=== PATIENT | female | born 1975 | race Caucasian/White ===

== ENCOUNTER 2021-07-10 19:09 | Emergency (ER) | payer OTHER ==
[~2021-07-10] VITALS: Ht 165.1 cm; Wt 59.0 kg
[2021-07-10 19:48] LABS: BASOPHILS ABSOLUTE AUTO 0.03 K/mm3 (0.00-0.23); BASOPHILS PERCENT AUTO 1 % (0-2); EOSINOPHILS ABSOLUTE AUTO 0.15 K/mm3 (0.00-0.68); EOSINOPHILS PERCENT AUTO 3 % (0-6); Hematocrit 32.8 % (33.0-51.0); Hemoglobin 11.9 g/dL (11.5-16.0); IMMATURE GRAN ABSOLUTE AUTO 0.01 K/mm3 (0.00-0.10); IMMATURE GRAN PERCENT AUTO 0 % (0-1); LYMPHOCYTES ABSOLUTE AUTO 1.03 K/mm3 (0.84-5.20); LYMPHOCYTES PERCENT AUTO 22 % (21-46); MONOCYTES ABSOLUTE AUTO 0.61 K/mm3 (0.16-1.47); MONOCYTES PERCENT AUTO 13 % (4-13); Mean Corpuscular HGB 37.1 pg (26.0-34.0); Mean Corpuscular HGB Conc 36.3 g/dL (31.5-36.5); Mean Corpuscular Volume 102 fL (80-100); Mean Platelet Volume 12.5 fL (9.1-12.4); NEUTROPHILS ABSOLUTE AUTO 2.79 K/mm3 (1.96-9.15); NEUTROPHILS PERCENT AUTO 61 % (41-73); Platelet Count 74 K/mm3 (150-400); RDW Coefficient Variation 11.5 % (11.7-14.2); RDW Standard Deviation 43.4 fL (35.1-46.3); Red Blood Cell Count 3.21 M/mm3 (3.80-5.20); White Blood Cell Count 4.62 K/mm3 (4.00-11.30)
[2021-07-10 20:08] LABS: Albumin, Blood 3.2 g/dL (3.4-5.0); Albumin/Globulin Ratio 1.1 (0.8-1.8); Bilirubin, Total 0.8 mg/dL (0.1-1.0); Bun/Creatinine Ratio 49.7 (12.0-20.0); Creatinine, Blood 0.3 mg/dL (0.40-1.00); Globulin, Blood 2.9 g/dL (2.2-4.0); Potassium, Blood 3.4 mmol/L (3.5-5.5); Total Protein, Blood 6.1 g/dL (6.4-8.2)
[2021-07-10 20:15] LABS: Source, Urine Clean Catch
[2021-07-10 20:19] LABS: Appearance, Urine Cloudy (Clear); Blood, Urine 5+ (Neg); Color, Urine Amber (P-Yellow); Glucose Qualitative, Urine 4+ (Neg); Ketones, Urine 2+ (Neg); Leukocyte Esterase, Urine 3+ (Neg); Nitrite, Urine Neg (Neg); Protein, Urine 2+ (Neg); Specific Gravity, Urine 1.015 (1.003-1.022); Urobilinogen, Urine 2+ (Normal); pH, Urine 6.5 (5.0-8.0)
[2021-07-10 20:21] LABS: Influenza A, PCR NEGATIVE (NEGATIVE); Influenza B, PCR NEGATIVE (NEGATIVE); Resp Syncytial Virus, PCR NEGATIVE (NEGATIVE); SARS-Cov-2 (COVID-19) PCR, MMC NEGATIVE (NEGATIVE)
[2021-07-10 20:25] LABS: Bilirubin, Urine 1+ (Neg); Red Blood Cells, Urine TNTC /hpf (0-2); White Blood Cells, Urine TNTC /hpf (0-5)
[2021-07-10 20:26] LABS: Bacteria Many /hpf; Squamous Epithelial Cells Mod /hpf (Few)
[2021-07-10 20:27] LABS: Renal Epithelial Few /hpf (0-Rare)
[2021-07-10 20:28] LABS: Calcium Oxalate Crystals Rare /hpf; Hyaline Casts 0-2 /lpf (0-2); WBC Cast 0-2 /lpf (0)
[2021-07-10] MEDS ORDERED: CEPH500 PO (21:52)
[2021-07-11] MEDS ORDERED: GABA300 PO (12:22)
[2021-07-11] MEDS ORDERED: FOLI1 PO (12:22)
[2021-07-11] MEDS ORDERED: B-1100 MG PO (12:22)
[2021-07-11] MEDS ORDERED: MELATONIN5 M1 PO (12:23)
[2021-07-11] MEDS ORDERED: Children's Che1 EAC1 PO (12:23)
[2021-07-11] MEDS ORDERED: LANTUS SOL100 UNIT/1 SQ (12:24)
[2021-07-11] MEDS ORDERED: CHLO25 PO (12:24)
[2021-07-11] MEDS ORDERED: IBUP800 PO (12:25)
[2021-07-11] MEDS ORDERED: HYDPAM50 PO (12:25)
[2021-07-11] MEDS ORDERED: METO25ER PO (12:26)
[2021-07-11] MEDS ORDERED: CATAPRES0.1 MG PO (12:26)
[2021-07-11] MEDS ORDERED: NICOTINE LOZENGE2 MG MM (12:27)
[2021-07-11] MEDS ORDERED: PROM25 PO (12:27)
[2021-07-11] MEDS ORDERED: TRAZ50 PO (12:27)
[2021-07-11] MEDS ORDERED: NICODERM CQ1 EA10 TOP (12:27)
[2021-07-11] MEDS ORDERED: Naltrexone HCl50 MG PO (12:28)
== END 2021-07-10 23:19 | disposition home or self-care (01) ==
LOC: ER 19:09
PROVIDERS: Emergency Medicine
DX: N39.0 Urinary tract infection, site not specified (principal); R53.81 Other malaise; F10.21 Alcohol dependence, in remission; Z20.822 Contact with and (suspected) exposure to COVID-19
CPT/HCPCS: 0241U; 80053; 81001; 81025; 85025; 87086; 87147; 96374; 99285-25; J0696

== ENCOUNTER 2021-07-11 07:40 | Inpatient (IN) | payer OTHER ==
[~2021-07-11] VITALS: Ht 152.4 cm; Wt 37.2 kg
[~2021-07-11 07:40] MED LIST: CEPH500 PO
[2021-07-11 08:44] LABS: BASOPHILS ABSOLUTE AUTO 0.03 K/mm3 (0.00-0.23); BASOPHILS PERCENT AUTO 1 % (0-2); EOSINOPHILS ABSOLUTE AUTO 0.15 K/mm3 (0.00-0.68); EOSINOPHILS PERCENT AUTO 3 % (0-6); Hematocrit 31.7 % (33.0-51.0); Hemoglobin 11.4 g/dL (11.5-16.0); IMMATURE GRAN ABSOLUTE AUTO 0.02 K/mm3 (0.00-0.10); IMMATURE GRAN PERCENT AUTO 0 % (0-1); LYMPHOCYTES ABSOLUTE AUTO 0.71 K/mm3 (0.84-5.20); LYMPHOCYTES PERCENT AUTO 12 % (21-46); MONOCYTES ABSOLUTE AUTO 0.85 K/mm3 (0.16-1.47); MONOCYTES PERCENT AUTO 14 % (4-13); Mean Corpuscular HGB 37.1 pg (26.0-34.0); Mean Corpuscular Volume 103 fL (80-100); Mean Platelet Volume 11.1 fL (9.1-12.4); NEUTROPHILS ABSOLUTE AUTO 4.32 K/mm3 (1.96-9.15); NEUTROPHILS PERCENT AUTO 71 % (41-73); Platelet Count 77 K/mm3 (150-400); RDW Coefficient Variation 11.8 % (11.7-14.2); Red Blood Cell Count 3.07 M/mm3 (3.80-5.20); White Blood Cell Count 6.08 K/mm3 (4.00-11.30)
[2021-07-11 09:25] LABS: Thyroid Stimulating Hormone 3.57 uIU/mL (0.360-4.800)
[2021-07-11 09:27] LABS: Albumin, Blood 3.1 g/dL (3.4-5.0); Albumin/Globulin Ratio 0.9 (0.8-1.8); Bilirubin, Total 0.9 mg/dL (0.1-1.0); Bun/Creatinine Ratio 60.9 (12.0-20.0); Calcium, Blood 8.8 mg/dL (8.5-10.1); Creatinine, Blood 0.28 mg/dL (0.40-1.00); Globulin, Blood 3.3 g/dL (2.2-4.0); Potassium, Blood 3.4 mmol/L (3.5-5.5); Total Protein, Blood 6.4 g/dL (6.4-8.2)
[2021-07-11] MEDS ORDERED: GABA300 PO (12:22)
[2021-07-11] MEDS ORDERED: FOLI1 PO (12:22)
[2021-07-11] MEDS ORDERED: B-1100 MG PO (12:22)
[2021-07-11] MEDS ORDERED: Children's Che1 EAC1 PO (12:23)
[2021-07-11] MEDS ORDERED: MELATONIN5 M1 PO (12:23)
[2021-07-11] MEDS ORDERED: LANTUS SOL100 UNIT/1 SQ (12:24)
[2021-07-11] MEDS ORDERED: CHLO25 PO (12:24)
[2021-07-11] MEDS ORDERED: HYDPAM50 PO (12:25)
[2021-07-11] MEDS ORDERED: IBUP800 PO (12:25)
[2021-07-11] MEDS ORDERED: CATAPRES0.1 MG PO (12:26)
[2021-07-11] MEDS ORDERED: METO25ER PO (12:26)
[2021-07-11] MEDS ORDERED: NICOTINE LOZENGE2 MG MM (12:27)
[2021-07-11] MEDS ORDERED: NICODERM CQ1 EA10 TOP (12:27)
[2021-07-11] MEDS ORDERED: PROM25 PO (12:27)
[2021-07-11] MEDS ORDERED: TRAZ50 PO (12:27)
[2021-07-11] MEDS ORDERED: Naltrexone HCl50 MG PO (12:28)
--- NOTE | 2021-07-11 19:17 | NUR ---
PATIENT CAME TO THE SCU APROX 6:50pm FROM THE ER. ADMITTING DX METABOLIC ENCEPHALOPATHY. SHE HAD 4 BAGS OF k IV IN THE ER, AND ONE BAG OF THIAMINE. SHE IS A CLIENT OF [facility] AND LIVES AT [facility]. SHE HAS BEEN SOBER 4 DAYS. CIWA SCORES SHOULD BE TAKEN. NONE HAVE BEEN DONE IN THE ER. PATIENT IS DIABETIC. SHE HAS BEEN NPO ALL DAY- SINCE COMING INTO ER EARLY THIS MORNING. PATIENT IS THIRSTY. HRR, LS CLEAR BUT DIMINISHED. SHE IS VERY WEAK AND WEIGHS 82 POUNDS, NEEDING 2 PEOPLE TO ASSIST TO COMMODE/BR AT THIS TIME. PATIENT HAS 2 IVS: 22 G L AC, 20G R W. THE WRIST IV IS PAINFUL TO USE. REVIEW LABS- SOME ARE ABNORMAL . CT OF HEAD SHOWS SOME MICROVASCULAR ISCHEMIA, MORE THAN NORMAL FOR AGE OF 46. PATIENTS QUICK ADMIT WAS COMPLETED. MY REP0RT GIVEN TO NOC NURSE. PATIENT IS RESTING IN BED NOW, AFTER HAVING JUST USED THE BEDSIDE COMMODE.
[2021-07-12 05:31] LABS: Hematocrit 35.4 % (33.0-51.0); Hemoglobin 12.3 g/dL (11.5-16.0); Mean Corpuscular HGB 36.5 pg (26.0-34.0); Mean Corpuscular HGB Conc 34.7 g/dL (31.5-36.5); Mean Corpuscular Volume 105 fL (80-100); Mean Platelet Volume 11.5 fL (9.1-12.4); Platelet Count 80 K/mm3 (150-400); RDW Coefficient Variation 11.6 % (11.7-14.2); RDW Standard Deviation 44.5 fL (35.1-46.3); Red Blood Cell Count 3.37 M/mm3 (3.80-5.20); White Blood Cell Count 6.26 K/mm3 (4.00-11.30)
[2021-07-12 05:50] LABS: Bun/Creatinine Ratio 49.3 (12.0-20.0); Calcium, Blood 9.2 mg/dL (8.5-10.1); Creatinine, Blood 0.2 mg/dL (0.40-1.00)
--- NOTE | 2021-07-12 06:34 | NUR ---
DUPLEX TRIMMER SUMMARY ADMITTED FOR ACUTE METABOLIC ENCEPHALOPATHY. PT IS A FULL CODE. CIWA HAS BEEN ELEVATED THROUGHOUT THE SHIFT. PT APPEARS TO BE INCREASINGLY CONFUSED THIS MORNING. SHE BELIEVES THAT SHE IS STILL AT [facility] AND THAT THE OTHER PATIENTS CRYING ARE HER DAUGHTER AND SHE NEEDS TO SEE THEM. PT PLACED IN GABRIEL DUE TO RISK OF FALLS. SHE IS A 2PA TO [facility] FOR TOTAL ASSIST. SHE HAS HAD MULTIPLE BOWEL MOVEMENTS TONIGHT THAT WERE JOELLEN COLORED AND PASTY. URINE IS DARK KHADIJAH/ORANGE. SHE PULLED ONE IV WHILE HALLUCINATING DURING THE NIGHT. CONTINUES TO NEED MEDICATION FOR ALCOHOL WITHDRAWAL. PT ATTEMPTED TO PHYSICALLY PUSH THE IV MEDICATION HERSELF BY GRABBING MY HAND WHILE ADMINISTERING ZOFRAN - THIS WAS DISCUSSED WITH PT BEING UNACCEPTABLE IF SHE IS TO RECEIVE TREATMENT HERE AND THAT THIS ACTION WILL NOT BE TOLERATED. PT BECOMING AMBIVALENT IN MANNER AND LESS COOPERATIVE WITH REDIRECTION.
--- NOTE | 2021-07-12 18:11 | NUR ---
OTTO VERY DROWSY THHROUGHOUT THIS SHIFT. WOKE FOR LUNCH TO TAKE A FEW BITES, REFUSED DINNER. MALNOURISHED AND FRAIL. VERY WEAK AND UNCOORDINATED WHEN AMBULATING. UP WITH GB AND 2 ASSIST. CONTINENT/INCONTINENT OF URINE. URINE VERY DARK WITH SEDIMENT, TAKING ROCEPHIN TO TREAT UTI. 20G IV TO L AC WNL AND SL. SPOKE WITH BRYAN AT [facility] TODAY AND HE SAID TODAY WOULD HAVE BEEN DAY 5 AND THEY WILL NOT BE TAKING PATIENT BACK TO THEIR FACILITY. GABRIEL REMOVED AT 1200 AND PATIENT ON CAMERA FOR HER SAFETY. FALL PRECAUTIONS IN PLACE.
--- NOTE | 2021-07-13 04:33 | NUR ---
LINK TRAINER TEACHER SUMMARY ADMITTED FOR AMS. PT IS FULL CODE. SHE HAS BEEN SLEEPING MOST OF THE SHIFT, WAKING UP ONLY TO VERBAL PROMPTING OR HER VITALS BEING TAKEN. SHE DID GET UP TO USE THE COMMODE ONCE THIS SHIFT BUT WITH NO VOID OR BM. PT CONCERNED ABOUT THIS AND INFORMED THAT IT IS MOST LIKELY CONNECTED TO HER LACK OF PO INTAKE YESTERDAY. PT MORE AWAKE THIS MORNING AND ATTEMPTING TO GET OUT OF BED. SHE IS STILL SLIGHTLY CONFUSED AND DOES NOT KNOW SHE IS IN THE HOSPITAL. CBG WAS 140, NOT NEEDING COVERAGE. ANOTHER TO BE DONE AT 0600. PT UP TO THE COMMODE AGAIN WITH NO OUTPUT; SHE WAS ENCOURAGED TO DRINK ORAL FLUIDS BUT PT VERY RELUCTANT.
[2021-07-13 05:28] LABS: BASOPHILS ABSOLUTE AUTO 0.04 K/mm3 (0.00-0.23); BASOPHILS PERCENT AUTO 1 % (0-2); EOSINOPHILS ABSOLUTE AUTO 0.16 K/mm3 (0.00-0.68); EOSINOPHILS PERCENT AUTO 3 % (0-6); Hematocrit 34.6 % (33.0-51.0); Hemoglobin 12.4 g/dL (11.5-16.0); IMMATURE GRAN ABSOLUTE AUTO 0.01 K/mm3 (0.00-0.10); IMMATURE GRAN PERCENT AUTO 0 % (0-1); LYMPHOCYTES PERCENT AUTO 16 % (21-46); MONOCYTES ABSOLUTE AUTO 0.91 K/mm3 (0.16-1.47); MONOCYTES PERCENT AUTO 16 % (4-13); Mean Corpuscular HGB 36.6 pg (26.0-34.0); Mean Corpuscular HGB Conc 35.8 g/dL (31.5-36.5); Mean Corpuscular Volume 102 fL (80-100); NEUTROPHILS ABSOLUTE AUTO 3.57 K/mm3 (1.96-9.15); NEUTROPHILS PERCENT AUTO 64 % (41-73); Platelet Count 104 K/mm3 (150-400); RDW Coefficient Variation 11.8 % (11.7-14.2); RDW Standard Deviation 43.6 fL (35.1-46.3); Red Blood Cell Count 3.39 M/mm3 (3.80-5.20); White Blood Cell Count 5.59 K/mm3 (4.00-11.30)
[2021-07-13 05:45] LABS: Bun/Creatinine Ratio 25.6 (12.0-20.0); Calcium, Blood 8.9 mg/dL (8.5-10.1); Creatinine, Blood 0.16 mg/dL (0.40-1.00); Magnesium, Blood 1.9 mg/dL (1.6-2.4); Phosphorus, Blood 2.4 mg/dL (2.5-4.9); Potassium, Blood 3.3 mmol/L (3.5-5.5)
--- NOTE | 2021-07-13 17:31 | NUR ---
PATIENT DOING MUCH BETTER TODAY. A/OX3 WITH BRIEF PERIODS OF CONFUSION. REORIENTS EASILY. VSS, ON RA. ZOFRAN GIVEN X1 FOR NAUSEA WITH STATED RELIEF. APPETITE CONTINUES TO BE VERY POOR, BUT IMPROVING. WALKED TO RESTROOM AND IN HALLS WITH SBA. CONTINENT OF BOWEL AND BLADDER. 20G IV TO L AC WNL AND SL. PATIENT USING CALL LIGHT APPROPRIATELY FOR ASSISTANCE. ABLE TO MAKE NEEDS KNOWN.
--- NOTE | 2021-07-14 03:30 | NUR ---
SHIFT SUMMARY NO ACUTE CHANGES OVERNIGHT. PT DIDN'T SLEEP GOOD OVERNIGHT. SHE WAS ANXIOUS WANTING TO GO HOME AND SEE FAMILY AND PETS. SHE WAS TEARY AND EMOTIONAL. SHE AOX4. PT RECIEVED HYDROXYZINE AND MELATONIN LAST NIGHT BUT IT DIDN'T APPEAR TO HELP. PT CONTINOUSLY FEELING ANXIOUS THIS MORNING. CALLED DR. MATHEWS, REQUEST FOR ANXIETY MED, ONE TIME ATIVAN 0.5MG GIVEN. PT STS SHE IS STILL FEELING ANXIOUS BUT NOT TEARFUL IN EXPRESSING EMOTIONS, APPEARS THAT ATIVAN HELPED. PT ALSO REPORTS PAIN, COCCYX AND FEELING RESTLESS WITH BLE. MEPLEX IN PLACED ON HER BACK FOR PROTECTION, NO PRESSURE ULCERS NOTED. PT ALSO HAS KPAD IN HER ROOM TO RELIEF RESTLESSNESS AND PAIN. PAIN MANAGED WITH IBUPROFEN AND TYLENOL. AMBULATES 1 SBA IN BATHROOM. VOIDING WITHOUT ISSUE. CALL LIGHT WITHIN REACH. WILL CONTINUE TO MONITOR AND PROVIDE REPORT TO ONCOMING NURSE.
[2021-07-14 05:44] LABS: BASOPHILS ABSOLUTE AUTO 0.05 K/mm3 (0.00-0.23); BASOPHILS PERCENT AUTO 1 % (0-2); EOSINOPHILS ABSOLUTE AUTO 0.14 K/mm3 (0.00-0.68); EOSINOPHILS PERCENT AUTO 4 % (0-6); Hematocrit 32.2 % (33.0-51.0); Hemoglobin 11.9 g/dL (11.5-16.0); IMMATURE GRAN ABSOLUTE AUTO 0.01 K/mm3 (0.00-0.10); IMMATURE GRAN PERCENT AUTO 0 % (0-1); LYMPHOCYTES ABSOLUTE AUTO 0.96 K/mm3 (0.84-5.20); LYMPHOCYTES PERCENT AUTO 25 % (21-46); MONOCYTES ABSOLUTE AUTO 0.79 K/mm3 (0.16-1.47); MONOCYTES PERCENT AUTO 21 % (4-13); Mean Corpuscular HGB 36.6 pg (26.0-34.0); Mean Corpuscular Volume 99 fL (80-100); Mean Platelet Volume 9.9 fL (9.1-12.4); NEUTROPHILS PERCENT AUTO 49 % (41-73); Platelet Count 119 K/mm3 (150-400); RDW Coefficient Variation 11.3 % (11.7-14.2); RDW Standard Deviation 40.7 fL (35.1-46.3); Red Blood Cell Count 3.25 M/mm3 (3.80-5.20); White Blood Cell Count 3.85 K/mm3 (4.00-11.30)
[2021-07-14 06:05] LABS: Bun/Creatinine Ratio 13.7 (12.0-20.0); Calcium, Blood 8.6 mg/dL (8.5-10.1); Creatinine, Blood 0.22 mg/dL (0.40-1.00); Phosphorus, Blood 2.6 mg/dL (2.5-4.9); Potassium, Blood 3.3 mmol/L (3.5-5.5)
[2021-07-14] MEDS ORDERED: CEPH500 PO (12:41)
[2021-07-14] MEDS ORDERED: MULVITA PO (12:46)
[2021-07-14] MEDS ORDERED: ACET325 PO (12:46)
[2021-07-14] MEDS ORDERED: ONDA4ODT MM (12:47)
--- NOTE | 2021-07-14 13:17 | NUR ---
PATIENT D/C'D TO HOME WITH S/O. DC INSTRUCTIONS AND EDUCATION DISCUSSED WITH PATIENT AND COPY PROVIDED. RX MEDICATIONS CALLED TO [facility] IN [place]. F/U APPT MADE WITH DR COTA AT [facility]. PATIENT DENIES ANY FURTHER QUESTIONS OR CONCERNS.
== END 2021-07-14 13:21 | disposition home health service (06) | DRG 689 ==
LOC: ER 07:40 → MEDS 07:41
PROVIDERS: Emergency Medicine; Family Medicine; ADMIT Internal Medicine
PROC: HZ2ZZZZ Detoxification Services for Substance Abuse Treatment (ICD-10-PCS; principal; 2021-07-12)
DX: N39.0 Urinary tract infection, site not specified (principal); G92.8 Other toxic encephalopathy; E87.1 Hypo-osmolality and hyponatremia; Z20.822 Contact with and (suspected) exposure to COVID-19; F41.9 Anxiety disorder, unspecified; E11.9 Type 2 diabetes mellitus without complications; F10.20 Alcohol dependence, uncomplicated; B95.1 Streptococcus, group B, as the cause of diseases classified elsewhere; E87.6 Hypokalemia; G47.00 Insomnia, unspecified; M54.50 Low back pain, unspecified; D69.6 Thrombocytopenia, unspecified; Z79.899 Other long term (current) drug therapy
CPT/HCPCS: 36415; 70450; 71045; 80048; 80053; 82140; 82607; 82746; 82947; 83735; 84100; 84132; 84443; 85025; 85027; 96365; 96366; 96367; 96375; 96376; 99285-25; A9270; G0378; G0480; J0696; J2060; J2405; J3411; J3475; J3480; J7040; J7042